=== PATIENT | male | born 1990 | race American Indian/Alaskan Native ===

== ENCOUNTER 2019-12-30 09:54 | Emergency (ER) | payer SELFPAY ==
--- NOTE | 2019-12-30 11:38 | Emergency Department Report ---
HPI - General Chief Complaint: Psych Time Seen by Provider: 12/30/19 11:31 - [facility] HPI: Room 10 The patient is a 29-year-old male present with a chief complaint of suicidal ideation. Patient has a history of schizophrenia and states he has had suicidal ideation for several months. The patient states his plan was to use a knife or hope that he caught COVID-19. Patient denies any active attempts at harming himself ED Past Medical Hx - Past Medical History Previous Medical History?: Yes Hx Psychiatric Treatment: Yes (Schizophrenia) - Surgical History Additional Surgical History: Left foot surgery - Family History Family history: no significant - Social History Smoking Status: Current Every Day Smoker (1 pack/day) Substance Use Type: Alcohol (Occasional), Marijuana - Medications Home Medications: Home Medications Medication Instructions Recorded Confirmed Last Taken Type Unobtainable 12/30/19 12/30/19 Unknown History ED Review of Systems ROS: Stated complaint: SUICIDAL Other details as noted in HPI Constitutional: no symptoms reported Eyes: denies: eye pain ENT: denies: throat pain Respiratory: no symptoms reported Cardiovascular: denies: chest pain Endocrine: no symptoms reported Gastrointestinal: denies: abdominal pain Genitourinary: denies: dysuria Musculoskeletal: denies: back pain Neurological: denies: headache Psychiatric: suicidal thoughts Physical Exam - Physical Exam Vital Signs: Vital Signs 12/30/19 10:02 Temperature 98.0 F Pulse Rate 86 Respiratory 18 Rate Blood Pressure 138/89 O2 Sat by Pulse 97 Oximetry Physical Exam: GENERAL: The patient is well-developed well-nourished male sitting on stretcher not appearing to be in acute distress. [] HEENT: Normocephalic. Atraumatic. Extraocular motions are intact. Patient has moist mucous membranes. NECK: Supple. Trachea midline CHEST/LUNGS: Clear to auscultation. There is no respiratory distress noted. HEART/CARDIOVASCULAR: Regular. There is no tachycardia. There is no gallop rub or murmur. ABDOMEN: Abdomen is soft, nontender. Patient has normal bowel sounds. There is no abdominal distention. SKIN: There is no rash. There is no edema. There is no diaphoresis. NEURO: The patient is awake, alert, and oriented. The patient is cooperative. The patient has normal speech MUSCULOSKELETAL:There is no evidence of acute injury. ED Course Vital Signs 12/30/19 10:02 Temperature 98.0 F Pulse Rate 86 Respiratory 18 Rate Blood Pressure 138/89 O2 Sat by Pulse 97 Oximetry ED Medical Decision Making - Lab Data Result diagrams: 12/30/19 11:39 12/30/19 11:39 Laboratory Tests 12/30/19 12/30/19 12/30/19 11:39 11:39 11:39 WBC 5.7 RBC 5.20 H Hgb 17.4 H Hct 50.0 H MCV 96 H MCH 34 H MCHC 35 H RDW 13.3 Plt Count 213 Lymph % (Auto) 42.7 H [place] % (Auto) 10.5 H Eos % (Auto) 1.4 Baso % (Auto) 0.8 Lymph # 2.4 [place] # 0.6 Eos # 0.1 Baso # 0.0 Seg Neutrophils % 44.6 Seg Neutrophils # 2.5 Sodium Potassium Chloride Carbon Dioxide Anion Gap BUN Creatinine Estimated GFR BUN/Creatinine Ratio Glucose Calcium Total Bilirubin AST ALT Alkaline Phosphatase Total Protein Albumin Albumin/Globulin Ratio Urine Bilirubin Urine RBC (Auto) Salicylates < 0.3 L Urine Opiates Screen Urine Methadone Screen Acetaminophen < 5.0 L Ur Barbiturates Screen Ur Phencyclidine Scrn Ur Amphetamines Screen U Benzodiazepines Scrn Urine Cocaine Screen Drugs of Abuse Note Plasma/Serum Alcohol 12/30/19 12/30/19 12/30/19 11:39 11:39 11:50 WBC RBC Hgb Hct MCV MCH MCHC RDW Plt Count Lymph % (Auto) [place] % (Auto) Eos % (Auto) Baso % (Auto) Lymph # [place] # Eos # Baso # Seg Neutrophils % Seg Neutrophils # Sodium 138 Potassium 4.6 Chloride 100.2 Carbon Dioxide 22 Anion Gap 20 BUN 8 L Creatinine 1.2 Estimated GFR > 60 BUN/Creatinine Ratio 7 Glucose 84 Calcium 9.6 Total Bilirubin 0.60 AST 20 ALT 11 Alkaline Phosphatase 54 Total Protein 8.1 Albumin 4.5 Albumin/Globulin Ratio 1.3 Urine Bilirubin Neg Urine RBC (Auto) 4.0 Salicylates Urine Opiates Screen Urine Methadone Screen Acetaminophen Ur Barbiturates Screen Ur Phencyclidine Scrn Ur Amphetamines Screen U Benzodiazepines Scrn Urine Cocaine Screen Drugs of Abuse Note Plasma/Serum Alcohol < 0.01 12/30/19 11:50 WBC RBC Hgb Hct MCV MCH MCHC RDW Plt Count Lymph % (Auto) [place] % (Auto) Eos % (Auto) Baso % (Auto) Lymph # [place] # Eos # Baso # Seg Neutrophils % Seg Neutrophils # Sodium Potassium Chloride Carbon Dioxide Anion Gap BUN Creatinine Estimated GFR BUN/Creatinine Ratio Glucose Calcium Total Bilirubin AST ALT Alkaline Phosphatase Total Protein Albumin Albumin/Globulin Ratio Urine Bilirubin Urine RBC (Auto) Salicylates Urine Opiates Screen Presumptive negative Urine Methadone Screen Presumptive negative Acetaminophen Ur Barbiturates Screen Presumptive negative Ur Phencyclidine Scrn Presumptive negative Ur Amphetamines Screen Presumptive negative U Benzodiazepines Scrn Presumptive negative Urine Cocaine Screen Presumptive negative Drugs of Abuse Note Disclamer Plasma/Serum Alcohol - Differential Diagnosis Suicidal ideation Critical care attestation.: If time is entered above; I have spent that time in minutes in the direct care of this critically ill patient, excluding procedure time. ED Disposition Clinical Impression: Suicidal ideation Disposition: [id number]/TX-[id number] PSY HOSP/PSY UNIT Is pt being admited?: No Does the pt Need Aspirin: No Condition: Stable Time of Disposition: 12:26 (Awaiting acceptance)
[2019-12-30 11:49] LABS: Basophils % (Auto) 0.8 % (0.0-1.8); Eosinophils # (Auto) 0.1 K/mm3 (0.0-0.4); Eosinophils % (Auto) 1.4 % (0.0-4.3); Hemoglobin 17.4 gm/dl (11.8-15.2); Lymphocytes # (Auto) 2.4 K/mm3 (1.2-5.4); Lymphocytes % (Auto) 42.7 % (13.4-35.0); Mean Corpuscular HGB Conc 35 % (32-34); Mean Corpuscular Volume 96 fl (84-94); Monocytes # (Auto) 0.6 K/mm3 (0.0-0.8); Monocytes % (Auto) 10.5 % (0.0-7.3); Platelet Count 213 K/mm3 (140-440); Red Cell Distribution Width 13.3 % (13.2-15.2)
[2019-12-30 12:14] LABS: Albumin 4.5 g/dL (3.9-5); BUN/Creatinine Ratio 7; Blood Urea Nitrogen 8 mg/dL (9-20); Calcium 9.6 mg/dL (8.4-10.2); Hemolysis Index 110
[2019-12-30 12:15] LABS: Alanine Aminotransferase 11 units/L (7-56)
[2019-12-30 12:16] LABS: Bilirubin,Urine NEG (Negative); Blood,Urine NEG (Negative); Color,Urine Yellow (Yellow); Mucus,Urine 3+ /HPF; Protein,Urine <15 mg/dL mg/dL (Negative)
[2019-12-30 12:19] LABS: Amphetamine Screen,Urine PRESUMPTIVE NEGATIVE; Benzodiazepines Screen,Urine PRESUMPTIVE NEGATIVE; Cocaine Screen,Urine PRESUMPTIVE NEGATIVE; Methadone Screen,Urine PRESUMPTIVE NEGATIVE; Opiate Screen,Urine PRESUMPTIVE NEGATIVE
[2019-12-30 12:32] LABS: Cannabinoid Screen,Urine PRESUMPTIVE POSITIVE
[2019-12-30] MEDS ORDERED: HALOPERIDOL LACTATE 5 MG/1 ML INJ IM PRN (13:03)
[2019-12-30] MEDS ORDERED: diphenhydrAMINE 50 MG/ML VIAL IM PRN (13:03)
[2019-12-30] MEDS ORDERED: LORazepam 2 MG/ML VIAL IM PRN (13:03)
[2019-12-31 07:56] VITALS: BP 127/79
== END 2019-12-31 16:00 ==
LOC: ED 09:54
DX: R45.851 Suicidal ideations (principal); F20.9 Schizophrenia, unspecified; F17.200 Nicotine dependence, unspecified, uncomplicated; F12.10 Cannabis abuse, uncomplicated; Z79.899 Other long term (current) drug therapy
CPT/HCPCS: 36415; 80053; 80307; 81001; 85025; 87086; 99285; J1630; 80320; G0480; J1200; J2060